=== PATIENT | male | born 1980 | race Caucasian/White ===

== ENCOUNTER 2017-02-14 09:39 | Emergency (ER) | payer SELFPAY ==
[~2017-02-14 09:39] MED LIST: CYCL1PAK PO; LANSO15 PO; PHEN30TA32 PO; PHEN60TA PO; TEMA15CA PO; ZOFR4TAB3 PO
[2017-02-14 09:42] VITALS: BP 99/67; PULSE 94; RESP 24; O2SAT 97
[2017-02-14 09:47] VITALS: TEMP 98.3
--- NOTE | 2017-02-14 10:14 | PD ---
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 They were unable to replace it. He is a 20 Polish G-tube was placed about 3 or 4 months ago. No other complaints. History Past Medical History Narrative Medical Cerebral palsy Seizures Nephrolithiasis GERD Dyslipidemia Status post PEG placement Tetanus Vaccination: Unknown Influenza Vaccination: No Social History Alcohol Use: No Tobacco Use: No Allergies-Medications (Allergen,Severity, Reaction): Coded Allergies: No Known Allergies (Verified , 02/14/17) Reported Meds & Prescriptions Reported Meds & Active Scripts Active Prevacid 15 Mg Solutab (Lansoprazole) 15 Mg Tab 15 Mg PO BID 30 Days Reported Cyclobenzaprine Hcl (Cyclobenzaprine HCl) 10 Mg Tab 10 Mg PO BID Phenobarbital 30 Mg Tab (Phenobarbital) 30 Mg Tab 32.4 Mg PO DAILY Phenobarbital 60 Mg Tab 60 Mg PO HS Zofran ODT (Ondansetron HCl) 4 Mg Tab 4 Mg PO Q6HR PRN Temazepam 15 Mg Cap 15 Mg PO BID PRN Review of Systems ROS Limitations: Clinical Condition General / Constitutional: No: Fever, Chills Gastrointestinal: No: Nausea, Vomiting Physical Exam Narrative GENERAL: Chronically ill-appearing 36-year-old male with marked contractures and cachexia. SKIN: Focused skin assessment warm/dry. CARDIOVASCULAR: Warm and well perfused. RESPIRATORY: Normal rate and effort. No respiratory distress. GASTROINTESTINAL: Abdomen is scaphoid and soft. In the upper epigastrium G- tube site is well-healed, patent. MUSCULOSKELETAL: Marked contractures Data Data Last Documented VS Vital Signs Date Time Temp Pulse Resp B/P Pulse Ox O2 Delivery O2 Flow Rate FiO2 02/14/17 10:02 20 100 Room Air 02/14/17 09:47 98.3 02/14/17 09:42 94 99/67 Orders Abdomen, Kub Only (02/14/17 ) Diatrizoate Liq ( Gastroview Gertrudis) (02/14/17 10:44) MDM Medical Decision Making Medical Screen Exam Complete: Yes Emergency Medical Condition: Yes Interpretation(s) My review of G-tube study: Contrast was normal into the stomach and down into the duodenum. No evidence of leak. Differential Diagnosis G-tube dislodgment, perforation, other Narrative Course 36-year-old man with cerebral palsy, G-tube dislodgment this morning. We'll replace at the bedside, shoed a contrast study, and discharge home. Procedures Procedure Narrative Replace G-tube: Area is prepped with Betadine. Initially a 20 Polish Sabillon catheter was placed. Once G-tube was available at the bedside, this was easily switched out for 20 Polish G-tube. 10 mL of sterile water were applied and the wound. Dressing was applied. We'll get x-ray contrast study. Diagnosis Primary Impression: PEG (percutaneous endoscopic gastrostomy) adjustment/replacement/removal Additional Instructions: Continue G-tube care as discussed. Follow up with your primary doctor. Return to the emergency department for any new or worsening symptoms. Med/Other Pt SpecificInfo: No Change to Meds Disposition: 01 DISCHARGE HOME Condition: Stable Bart Zepeda MD Feb 14, 2017 10:14
[2017-02-14] MEDS ORDERED: DIATRIZOATE MEGLUM/DIATRIZOATE SOD 120 ML BTL (for RAD DIAG) G-TUBE ONE (10:44)
[2017-02-14 11:17] VITALS: BP 118/74
--- NOTE | 2017-02-14 11:33 | RADRPT ---
EXAM DATE/TIME: 02/14/2017 10:27 [facility] COMPARISON: CT ABDOMEN & PELVIS W/O CONTRAST, March 21, 2015, 12:11. INDICATIONS : Evaluate G tube placement. MEDICAL HISTORY : Gastroesophageal reflux disease. Cerebral palsy, seizures SURGICAL HISTORY : Peg tube, lithotripsy, spinal fusion ENCOUNTER: Initial ACUITY: 1 day PAIN SCORE: 0/10 LOCATION: Right upper quadrant FINDINGS: Contrast was injected via the gastrostomy tube in the ER. Contrast is seen within the lumen of the s tomach and the 2nd portion of the duodenum. There is also some contrast seen in the lower chest sugg esting reflux into the distal esophagus. Several amorphous calcifications project over the left kidn ey measuring up to 1.6 cm, consisted with history of known staghorn calculi. Gas is seen in loops of small and large bowel. Mild amount of stool in the right colon. Both margins of the both hemidiaph ragms, suggesting the possibility of pneumoperitoneum. Comparison is made to a CT scan performed in March 2015 which have demonstrated marked gaseous distention of the colon extending underneath the hem idiaphragm. The scale adjuster film from the prior CT is very similar to today's KUB. Therefore, the appeara nce of the diaphragms could either be due to pneumoperitoneum or markedly distended colon. CONCLUSION: 1. Contrast per gastrostomy tube is seen in the stomach, duodenum and presumably reflux into the dist al esophagus. 2. Prominent hypodensity underneath both hemidiaphragms could represent either pneumoperitoneum or ma rkedly distended colon. 3. Renal staghorn calculi on the left. The findings have been discussed with Dr. Zepeda. Vamsi Hylton MD on February 14, 2017 at 11:20 Board Certified Radiologist. This report was verified electronically.
== END 2017-02-14 11:17 | disposition home or self-care (01) ==
LOC: NEPC 09:39
DX: Z46.59 Encounter for fitting and adjustment of other gastrointestinal appliance and device (principal); K94.23 Gastrostomy malfunction; G80.9 Cerebral palsy, unspecified; Z86.69 Personal history of other diseases of the nervous system and sense organs; Z87.442 Personal history of urinary calculi; Z87.19 Personal history of other diseases of the digestive system
CPT/HCPCS: 49452; 74000; 99284; Q9963

== ENCOUNTER 2018-01-05 12:35 | Emergency (ER) | payer SELFPAY ==
[~2018-01-05] VITALS: Ht 152.4 cm; Wt 45.5 kg
[2018-01-05 12:51] VITALS: BP 123/69; PULSE 118; RESP 20; TEMP 98.3; O2SAT 94
[2018-01-05] MEDS ORDERED: DIATRIZOATE MEGLUM/DIATRIZOATE SOD 9 ML CUP PO ONE (13:00)
[2018-01-05] MEDS ORDERED: CIPR-9 PO (13:04)
[2018-01-05] MEDS ORDERED: CYCL10TA PO (13:04)
[2018-01-05] MEDS ORDERED: TEMA15CA PO (13:04)
[2018-01-05] MEDS ORDERED: PHEN-524 PO (13:04)
[2018-01-05] MEDS ORDERED: PREV15CA20 PO (13:04)
[2018-01-05] MEDS ORDERED: ZOFR4TAB PO (13:04)
--- NOTE | 2018-01-05 13:35 | PD ---
HPI Chief Complaint: Medical Clearance Time Seen by Provider: 12:55 Travel History International Travel<30 days: No Contact w/Intl Traveler<30days: No Traveled to known affect area: No History of Present Illness HPI 37-year-old male arrives with the mother because the gastric tube this morning would not allow for feeds. The mother tried spraying Coke which did not help. The mother tried warm water which did not help. Timing constant. Onset of loss of G-tube patency unknown. There is no modifying factor. PFSH Past Medical History Asthma: No Autoimmune Disease: No Blood Disorders: No Anxiety: No Depression: No Heart Rhythm Problems: No Cancer: No Cardiovascular Problems: No Cerebral Palsy: Yes High Cholesterol: No Chemotherapy: No Chest Pain: No Congestive Heart Failure: No COPD: No Cerebrovascular Accident: No Diabetes: No Diminished Hearing: No Endocrine: No Gastrointestinal Disorders: Yes (FREQUENT CONSTIPATION) GERD: Yes Glaucoma: No Genitourinary: Yes Hepatitis: No Hiatal Hernia: No Hypertension: No Immune Disorder: No Kidney Stones: Yes (pt has had 5 lithotripsy) Medical other: Yes (HAS CEREBRAL PALSY-HX. SEIZURES) Musculoskeletal: Yes (HAS CEREBRAL PALSY) Neurologic: Yes (CEREBRAL PALSY) Psychiatric: No Reproductive: No Respiratory: No Immunizations Current: Yes Myocardial Infarction: No Radiation Therapy: No Renal Failure: No Seizures: Yes (NONE IN A LONG TIME PER MOM) Sleep Apnea: No Thyroid Disease: No Ulcer: Yes Tetanus Vaccination: Unknown Influenza Vaccination: No Past Surgical History Abdominal Surgery: Yes (PEG TUBE PLACEMENT) AICD: No Arteriovenous Shunt: No Body Medical Devices: kaleb on back surgery Cardiac Surgery: No Ear Surgery: No Endocrine Surgery: No Eye Surgery: No Genitourinary Surgery: Yes (MULTIPLE KIDNEY STONE SX-LITHOTRIPSY) Gynecologic Surgery: No Insulin Pump: No Joint Replacement: No Oral Surgery: Yes (DENTAL SX X2) Pacemaker: No Thoracic Surgery: No Other Surgery: Yes (back surgery) Social History Alcohol Use: No Tobacco Use: No Substance Use: No Allergies-Medications (Allergen,Severity, Reaction): Coded Allergies: No Known Allergies (Verified , 02/14/17) Reported Meds & Prescriptions Reported Meds & Active Scripts Active Reported Cipro (Ciprofloxacin HCl) 500 Mg Tab 500 Mg PO BID Flexeril (Cyclobenzaprine HCl) 10 Mg Tab 10 Mg PO BID Temazepam 15 Mg Cap 15 Mg PO BID PRN Phenobarbital 60 Mg Tab 60 Mg PO DAILY Zofran (Ondansetron HCl) 4 Mg Tab 4 Mg PO Q6HR PRN Prevacid (Lansoprazole) 15 Mg Capdr 15 Mg PO BID Review of Systems Except as stated in HPI: all other systems reviewed are Neg General / Constitutional: No: Fever Physical Exam Narrative GENERAL: 37-year-old male pleasant well-nourished well-developed no acute distress Vital Signs Date Time Temp Pulse Resp B/P (MAP) Pulse Ox O2 Delivery O2 Flow Rate FiO2 01/05/18 12:51 98.3 118 20 123/69 [phone]) 94 SKIN: Warm and dry. HEAD: Atraumatic. Normocephalic. EYES: Pupils equal and round. No scleral icterus. No injection or drainage. ENT: No nasal bleeding or discharge. Mucous membranes pink and moist. NECK: Trachea midline. No JVD. CARDIOVASCULAR: Tachycardia. Regular rhythm. RESPIRATORY: No accessory muscle use. Clear to auscultation. Breath sounds equal bilaterally. GASTROINTESTINAL: There is generalized guarding at the abdominal wall with a gastric tube just left of midline. No cellulitis about the site of insertion. MUSCULOSKELETAL: Extremities without clubbing, cyanosis, or edema. No obvious deformities. NEUROLOGICAL: Cerebral palsy. Awake alert and interactive. Nonverbal. PSYCHIATRIC: Appropriate mood and affect; insight and judgment normal. Data Data Last Documented VS Vital Signs Date Time Temp Pulse Resp B/P (MAP) Pulse Ox O2 Delivery O2 Flow Rate FiO2 01/05/18 12:51 98.3 118 20 123/69 (87) 94 Orders Orders Diatrizoate Liq ( Gastroview Liq) (01/05/18 13:00) Abdomen, Kub Only (01/05/18 ) Ed Discharge Order (01/05/18 13:51) MDM Medical Decision Making Medical Screen Exam Complete: Yes Emergency Medical Condition: Yes Medical Record Reviewed: Yes Differential Diagnosis Percutaneous endoscopic gastrostomy adjustment, replacement, removal. Narrative Course G-tube replaced by the undersigned at the bedside. 18 Kyr[place]z tube was passed without difficulty. Postprocedural plain film revealed Gastrografin the gastric lumen. Radiology read concerning for possible extravasation or misplaced Gastric tube. Pt had previously departed. Mother was contacted at 1533 and she reported intent to return to the ED right away. Diagnosis Primary Impression: PEG (percutaneous endoscopic gastrostomy) adjustment/replacement/removal Med/Other Pt SpecificInfo: No Change to Meds Disposition: 01 DISCHARGE HOME Condition: Stable Terry Taylor MD Jan 05, 2018 13:35
--- NOTE | 2018-01-05 14:27 | RADRPT ---
EXAM DATE/TIME: 01/05/2018 13:48 [facility] COMPARISON: ABDOMEN KUB ONLY, February 14, 2017, 10:27. INDICATIONS : Evaluate G tube placement. MEDICAL HISTORY : Gastroesophageal reflux disease. Cerebral palsy, seizures SURGICAL HISTORY : None. Peg tube, lithotripsy, spinal fusion ENCOUNTER: Initial ACUITY: 1 day PAIN SCORE: Non-responsive. LOCATION: Bilateral abdomen FINDINGS: Contrast is seen within the stomach. Some of the injected contrast appears to extend potentially beyo nd the lumen of the stomach in the left upper quadrant. There are calcifications in the upper in the upper abdomen bilaterally likely related to renal stones being more prominent on the left. There is a moderate amount of stool in the upper aspects of the co edward. There is dilated bowel in the upper abdomen. This is nonspecific. Surgical hardware seen in the thoracic, lumbar and sacral regions. There is some lucency around the sacral aspects of the hardware which can suggest some motion. The patient has a dextrocurvature of the thoracolumbar region and a le vocurvature of the lumbar spine. The bones are osteopenic. The lung bases are clear grossly clear. Fr ee air is not clearly seen. CONCLUSION: 1. Most of the injected contrast is clearly within the stomach. There are 2 linear areas that appear to extend potentially beyond the gastric lumen in the left upper quadrant. These areas could be furth er evaluated with CT examination of the abdomen. 2. Prominent stool in the upper abdominal portions of the colon. 3. Chronic bony and postoperative change in the spine. 4. Bilateral renal stones. Emeka Yee MD on January 05, 2018 at 14:20 Board Certified Radiologist. This report was verified electronically.
== END 2018-01-05 14:09 | disposition home or self-care (01) ==
LOC: PHED 12:35
DX: Z93.1 Gastrostomy status (principal); G80.9 Cerebral palsy, unspecified; R00.0 Tachycardia, unspecified; K21.9 Gastro-esophageal reflux disease without esophagitis; Z87.442 Personal history of urinary calculi; Z86.69 Personal history of other diseases of the nervous system and sense organs; Z79.899 Other long term (current) drug therapy
CPT/HCPCS: 74018; 99283; Q9963

== ENCOUNTER 2018-01-05 16:06 | Emergency (ER) | payer SELFPAY ==
[~2018-01-05 16:06] MED LIST changes: +CIPR-9 PO; +CYCL10TA PO; +PHEN-524 PO; +PREV15CA20 PO; +ZOFR4TAB PO
[2018-01-05 16:13] VITALS: BP 92/70; PULSE 99; RESP 22; O2SAT 98
--- NOTE | 2018-01-05 17:07 | PD ---
HPI Chief Complaint: Flooring Mechanic Problem Time Seen by Provider: 16:18 Travel History International Travel<30 days: No Contact w/Intl Traveler<30days: No Traveled to known affect area: No History of Present Illness HPI The patient's 37 years old. He has cerebral palsy and has a gastric tube. He came here earlier today and it was exchanged by the undersigned at the bedside. Trace contrast was observed underneath the left diaphragm raising concern for some kind of malposition. The patient had already left and I called them and they came back. A stat CT was ordered and was done immediately. Tube was confirmed to be in place. We see a significant volume of urine on CT scan. The patient has a condom catheter presently and we placed a 12 cc pediatric Sabillon. A referral was provided to Dr. Trevino of urology and mother agreed to follow up in three days. PFSH Past Medical History Asthma: No Autoimmune Disease: No Blood Disorders: No Anxiety: No Depression: No Heart Rhythm Problems: No Cancer: No Cardiovascular Problems: No Cerebral Palsy: Yes High Cholesterol: No Chemotherapy: No Chest Pain: No Congestive Heart Failure: No COPD: No Cerebrovascular Accident: No Diabetes: No Diminished Hearing: No Endocrine: No Gastrointestinal Disorders: Yes (FREQUENT CONSTIPATION) GERD: Yes Glaucoma: No Genitourinary: Yes Hepatitis: No Hiatal Hernia: No Hypertension: No Immune Disorder: No Kidney Stones: Yes (pt has had 5 lithotripsy) Medical other: Yes (HAS CEREBRAL PALSY-HX. SEIZURES) Musculoskeletal: Yes (HAS CEREBRAL PALSY) Neurologic: Yes (CEREBRAL PALSY) Psychiatric: No Reproductive: No Respiratory: No Immunizations Current: Yes Myocardial Infarction: No Radiation Therapy: No Renal Failure: No Seizures: Yes (NONE IN A LONG TIME PER MOM) Sleep Apnea: No Thyroid Disease: No Ulcer: Yes Tetanus Vaccination: > 5 Years Influenza Vaccination: No Past Surgical History Abdominal Surgery: Yes (PEG TUBE PLACEMENT) AICD: No Arteriovenous Shunt: No Body Medical Devices: kaleb on back surgery Cardiac Surgery: No Ear Surgery: No Endocrine Surgery: No Eye Surgery: No Genitourinary Surgery: Yes (MULTIPLE KIDNEY STONE SX-LITHOTRIPSY) Gynecologic Surgery: No Insulin Pump: No Joint Replacement: No Oral Surgery: Yes (DENTAL SX X2) Pacemaker: No Thoracic Surgery: No Other Surgery: Yes (back surgery) Social History Alcohol Use: No Tobacco Use: No Substance Use: No Allergies-Medications (Allergen,Severity, Reaction): Coded Allergies: No Known Allergies (Verified Adverse Reaction, Unknown, 01/05/18) Reported Meds & Prescriptions Reported Meds & Active Scripts Active Reported Cipro (Ciprofloxacin HCl) 500 Mg Tab 500 Mg PO BID Flexeril (Cyclobenzaprine HCl) 10 Mg Tab 10 Mg PO BID Temazepam 15 Mg Cap 15 Mg PO BID PRN Phenobarbital 60 Mg Tab 60 Mg PO DAILY Zofran (Ondansetron HCl) 4 Mg Tab 4 Mg PO Q6HR PRN Prevacid (Lansoprazole) 15 Mg Capdr 15 Mg PO BID Review of Systems ROS Limitations: Clinical Condition Physical Exam Narrative GENERAL: 37-year-old male well-nourished well-developed ABDOMEN: There is a gastric tube. There is no cellulitis about the tube site of insertion. PELVIS: Prominent distension of urinary bladder. Data Data Last Documented VS Vital Signs Date Time Temp Pulse Resp B/P (MAP) Pulse Ox O2 Delivery O2 Flow Rate FiO2 01/05/18 17:48 01/05/18 17:27 98.0 105 20 98 Room Air Orders Orders Ct Abd/Pel W/O Iv Contrast (01/05/18 16:18) Urinary Catheter Insert/Apply (01/05/18 17:05) Ed Discharge Order (01/05/18 17:43) Mandatory Outpatient Referral (01/05/18 17:44) MDM Medical Decision Making Medical Screen Exam Complete: Yes Emergency Medical Condition: Yes Differential Diagnosis Percutaneous endoscopic gastrostomy tube adjustment, replacement or removal, urinary obstruction Narrative Course Sabillon catheter was placed. 500 cc urine collected, a significant amount for a patient as small as Mr. Haile. Mother understands that Sabillon removal must be performed in 3 days without fail. We have provided him for outpatient referral for urology. Patient can return to Dr. Simmons or the ER if necessary. It should be noted that this visit was added on to the prior visit after the patient left without final read for the x-ray report and it is hoped that this visit can be pelvic conjunction with the previous one to avoid unfair cost to the patient. Diagnosis Primary Impression: PEG (percutaneous endoscopic gastrostomy) adjustment/replacement/removal Referrals: Alexys Rodriguez MD call for appointment Med/Other Pt SpecificInfo: No Change to Meds Disposition: 01 DISCHARGE HOME Condition: Stable Terry Taylor MD Jan 05, 2018 17:07
[2018-01-05 17:27] VITALS: BP 108/75; PULSE 105; RESP 20; TEMP 98; O2SAT 98
--- NOTE | 2018-01-05 17:38 | RADRPT ---
EXAM DATE/TIME: 01/05/2018 16:31 [facility] COMPARISON: ABDOMEN KUB ONLY, January 05, 2018, 13:48. CT ABDOMEN & PELVIS W/O CONTRAST, March 21, 2015, 12:11. INDICATIONS : Evaluate G-tube placement. ORAL CONTRAST: No oral contrast ingested. RADIATION DOSE: 4.44 CTDIvol (mGy) MEDICAL HISTORY : Gastroesophageal reflux disease. Seizures. Cerebral palsy. SURGICAL HISTORY : Peg tube. Lithotripsy. Spinal fusion. ENCOUNTER: Initial ACUITY: 1 day PAIN SCALE: Non-responsive LOCATION: pelvis abdomen TECHNIQUE: Volumetric scanning of the abdomen and pelvis was performed. Using automated exposure control and ad justment of the mA and/or kV according to patient size, radiation dose was kept as low as reasonably achievable to obtain optimal diagnostic quality images. DICOM format image data is available electro nically for review and comparison. FINDINGS: LOWER LUNGS: The visualized lower lungs are clear. LIVER: Homogeneous density without lesion. There is no dilation of the biliary tree. No calcified gallston es. SPLEEN: Normal size without lesion. PANCREAS: Within normal limits. KIDNEYS: Staghorn calculi are seen bilaterally in the kidneys being more prominent on the left. ADRENAL GLANDS: Within normal limits. VASCULAR: There is no aortic aneurysm. BOWEL/MESENTERY: Oral contrast is all within the bowel. Extravasation of oral contrast is not seen. There is a G-tube. The stomach, small bowel, and colon demonstrate no acute abnormality. Oral contrast is seen within the distal esophagus. There is no free intraperitoneal air or fluid. ABDOMINAL WALL: Within normal limits. RETROPERITONEUM: There is no lymphadenopathy. BLADDER: The urinary bladder is distended extending to the level of the pelvic inlet. There is a calcific dens ity in the posterior bladder wall related to either calcification within the bladder wall or dependen t layering calcification. REPRODUCTIVE: Within normal limits. INGUINAL: There is no lymphadenopathy or hernia. MUSCULOSKELETAL: There is a levocurvature of the lumbar spine. Surgical hardware seen throughout the thoracic, lumbar, and sacral regions. CONCLUSION: 1. No extravasation of contrast is seen. The G-tube is well placed within the stomach. 2. Sacroiliac calculi seen in the kidneys bilaterally being more prominent on the left. 3. Long stabilization rods throughout the thoracic, lumbar and sacral regions. 4. Distended urinary bladder. Emeka Yee MD on January 05, 2018 at 17:30 Board Certified Radiologist. This report was verified electronically.
== END 2018-01-05 17:49 | disposition home or self-care (01) ==
LOC: PHED 16:06
DX: K94.20 Gastrostomy complication, unspecified (principal); G80.9 Cerebral palsy, unspecified; K21.9 Gastro-esophageal reflux disease without esophagitis; Z87.442 Personal history of urinary calculi; Z86.69 Personal history of other diseases of the nervous system and sense organs; Z79.899 Other long term (current) drug therapy
CPT/HCPCS: 51702; 74176